=== PATIENT | male | born 1975 | race African-American/Black ===

== ENCOUNTER 2017-03-17 18:39 | Emergency (ER) | payer MEDICAID ==
[~2017-03-17] VITALS: Ht 185.4 cm; Wt 90.7 kg
[2017-03-17 19:22] VITALS: BP 107/84
== END 2017-03-17 23:27 | disposition left against medical advice (07) ==
LOC: ER 18:54
DX: J02.9 Acute pharyngitis, unspecified (principal); R50.9 Fever, unspecified; Z53.21 Procedure and treatment not carried out due to patient leaving prior to being seen by health care provider